=== PATIENT | male | born 1980 | race Caucasian/White ===

== ENCOUNTER 2021-01-09 13:19 | Emergency (ER) | payer BC ==
[~2021-01-09] VITALS: Ht 175.3 cm; Wt 102.3 kg
[~2021-01-09 13:19] MED LIST: NO HOME MEDICATIONS
[2021-01-09 13:26] VITALS: TEMP 98.3
[2021-01-09 15:44] LABS: BASO % 0.3 % (0.0-2.0); GRAN # 2.1 (1.4-6.5); GRAN % 55.5 % (42.2-75.2); HEMATOCRIT 49.3 % (42.0-52.0); LYMPH # 1.3 (1.2-3.4); LYMPH % 34.4 % (20.0-51.0); MEAN CELL VOLUME 88 fl (80.0-100.0); MEAN CORPUSCULAR HEMOGLOBIN 30 pg (27.0-31.0); MEAN CORPUSCULAR HGB CONC 35 g/dl (33.0-37.0); MEAN PLATELET VOLUME 9.3 fl (7.4-10.4); MONO # 0.4 (0.1-0.6); MONO % 9.5 % (1.7-9.3); PLATELET COUNT 154 K/mm3 (130-400); RED BLOOD COUNT 5.61 M/mm3 (4.20-5.60); REDCELL DISTRIBUTION WIDTH-CV 12.7 % (11.5-14.5)
[2021-01-09 15:54] LABS: ALBUMIN 4.6 gm/dL (3.5-5.0); BILIRUBIN,TOTAL 0.7 mg/dL (0.0-1.0); CALCIUM 8.6 mg/dL (8.4-10.2); CREATININE, serum 1.08 (0.66-1.25); POTASSIUM 4.1 mmol/L (3.4-5.0); TOTAL PROTEIN 8.4 gm/dL (6.4-8.2)
[2021-01-09 16:19] LABS: TROPONIN-I < 0.012 ng/mL (0.000-0.035)
[2021-01-09 16:50] VITALS: BP 133/61; PULSE 64
== END 2021-01-09 16:50 | disposition home or self-care (01) ==
LOC: COL.ER 13:19
PROVIDERS: Emergency Medicine
DX: U07.1 COVID-19 (principal); I10 Essential (primary) hypertension; J45.909 Unspecified asthma, uncomplicated

== ENCOUNTER 2024-02-12 20:41 | Emergency (ER) | payer BC ==
[~2024-02-12] VITALS: Ht 175.3 cm; Wt 109.1 kg
[2024-02-12 20:45] VITALS: TEMP 97.1
[2024-02-12] MEDS ORDERED: EPINEPHrine 0.3 MG/0.3 ML Auto Injector IM ONE (20:45)
[2024-02-12] MEDS ORDERED: methylPREDNISolone Sod Succ 125 MG/2 ML VIAL IV ONE (21:00)
[2024-02-12] MEDS ORDERED: diphenhydrAMINE 50 MG/ML 1 ML VIAL IV ONE (21:00)
[2024-02-12] MEDS ORDERED: EPIPEN 2-PAK1 MG/ML IM (22:45)
[2024-02-12] MEDS ORDERED: predniSONE 20 MG TAB PO ONE (22:45)
[2024-02-12 23:18] VITALS: BP 134/64; PULSE 78
== END 2024-02-12 23:19 | disposition home or self-care (01) ==
LOC: COL.ER 20:41
DX: T63.481A Toxic effect of venom of other arthropod, accidental (unintentional), initial encounter (principal); T78.2XXA Anaphylactic shock, unspecified, initial encounter
CPT/HCPCS: J1200; J2919; J7512